=== PATIENT | female | born 1950 | race Caucasian/White ===

== ENCOUNTER 2020-11-06 18:14 | Emergency (ER) | payer MEDICARE, SELFPAY ==
[2020-11-06 19:12] VITALS: BP 136/77; PULSE 83; RESP 19; TEMP 36.8; O2SAT 99; BMI 30.7
--- NOTE | 2020-11-06 19:16 | HMH.EDUTC ---
[facility] [place] Clinical Impression: Laceration Disposition: Home, Self-Care Condition on Discharge: Good Instructions: How to Care for a Laceration After Repair, DI for Laceration Repair, DI for Laceration Repair -- Simple Additional Instructions: Suture instructions: You have required stitches today. Please read the following instructions so you know how to care for them: 1. Keep wound area dry for the first 24 hours. 2 May clean gently with mild soap and water, after 48 hours to prevent crusting over suture knots. 3. You may shower if your provider gives permission but do not take a bath until the skin is healed.. 4. Never leave a wet dressing or Band-Aid on your stitches as this allows bacteria to reach the area and may cause infection. Band-aids can cause the wound to sweat and not recommended to wear for long periods of time Watch for signs of infection: Increasing redness, tenderness or warmth around the suture site Unusual swelling around the site Appearance of pus around each suture or any red streaks Fever If you develop any of the above signs or symptoms of infection, Follow up with Family Physician immediately 5. Suture removal in _7-10___days 6. Return to [facility] or follow up with family doctor for removal. This can be done by any medical provider during regular hours on Wednesday through Wednesday, by appointment. Prescriptions: Amoxicillin/Potassium Clav [Augmentin 500mg tab] 1 tab PO TID 5 Days #15 tab Transmission Status: Sent to [id number] Referrals: Fabio Cee [Primary Care Provider] - As needed Time of Disposition: 20:26 Medical Decision Making - Ricci Inquiry Pt receiving controlled substance: No Ricci was queried for this patient: No Vital Signs: 11/06/20 19:12 Temperature 98.2 F Temperature Source Oral Pulse Rate [Left] 83 Respiratory Rate 19 Blood Pressure [Right Arm] 136/77 Blood Pressure Mean [Right Arm] 96 02 Sat by Pulse Oximetry 99 Orders (Tests/Meds): ED MEDICATIONS Discontinued Medications Generic Name Dose Route Start Last Admin Trade Name Freq PRN Reason Stop Dose Admin Tetanus/Reduced Diphtheria/Acell Pertussis 0.5 ml 11/06/20 19:08 Tet/Diphth/Pert-Adult 0.5ml Syringe IM 11/06/20 19:09 .ONCE ONE Medical Decision Narrative: Patient states that she has taken augmentin in the past without reaction or complications [facility] [place] - General Stated complaint: AO 11/06 lac to L leg Time Seen by Provider: 11/06/20 19:20 Mode of Arrival: Ambulatory Source of Information: Patient Limitations: No Limitations Description of Symptoms (Recalled from Triage Doc. by RN): pt was pushing a wagon in the garage that she had used on the mower. the tongue caught her on her L ramos leaving her with a lac. this occurred around 1500. HEENT Symptoms (Recalled from RN notes): No Resp Symptoms (Recalled from RN notes): No Skin Symptoms (Recalled from RN notes): Yes (lac to L ramos) MS Symptoms (Recalled from RN notes): No Functional Status (Recalled from RN notes): na - History of Present Illness Provider Complaint: Patient state that she was moving a small wagon like trailor that she uses on the mower and the tongue on the wagon hit her in her left lower leg causing laceration States that she is unsure when her last tetanus shot was so she came in to get it checked and get a Tdap - Related Data Home Medications Medication Instructions Recorded Confirmed Ferrous Sulfate 325 mg PO DAILY 03/20/18 03/20/18 Gabapentin [Gabapentin 300mg Cap] 300 mg PO DAILY 03/20/18 03/20/18 Lisinopril/Hydrochlorothiazide 20 mg PO DAILY 03/20/18 03/20/18 [Lisinopril-Hctz 20-12.5 mg Tab] Meloxicam 15 mg PO DAILY 03/20/18 03/20/18 Omeprazole [Omeprazole 40mg 40 mg PO DAILY 03/20/18 03/20/18 Capsule] Tizanidine HCl [Zanaflex 4mg 4 mg PO DAILY 03/20/18 03/20/18 tablet] Previous Rx's Medication Instructions Recorded Amoxicillin/Potassium Clav 1 tab PO TI
[2020-11-06 20:37] VITALS: BP 0/0; PULSE 83; RESP 18; TEMP 36.9
== END 2020-11-06 20:37 | disposition home or self-care (01) ==
PROVIDERS: Emergency Provider Nurse Practitioner; PCP Family Medicine
DX: S81.812A Laceration without foreign body, left lower leg, initial encounter (principal); W22.09XA Striking against other stationary object, initial encounter; Y92.017 Garden or yard in single-family (private) house as the place of occurrence of the external cause; Z23 Encounter for immunization; I10 Essential (primary) hypertension; Z79.899 Other long term (current) drug therapy
CPT/HCPCS: 12002; G0463; 90715; 99202

== ENCOUNTER 2020-11-15 09:04 | Emergency (ER) | payer MEDICARE, SELFPAY ==
[2020-11-15 09:05] VITALS: BP 110/56; PULSE 64; RESP 18; TEMP 36.6; O2SAT 98; BMI 30.7
[2020-11-15 09:25] VITALS: BP 110/56; PULSE 64; RESP 18; TEMP 36.6; O2SAT 98
== END 2020-11-15 09:28 | disposition home or self-care (01) ==
LOC: UTC 09:11
PROVIDERS: Emergency Provider Nurse Practitioner; PCP Family Medicine
DX: S81.812D Laceration without foreign body, left lower leg, subsequent encounter (principal)

== ENCOUNTER 2020-11-17 09:02 | Emergency (ER) | payer MEDICARE, SELFPAY ==
[2020-11-17 09:15] VITALS: BP 136/81; PULSE 87; RESP 16; TEMP 36.8; O2SAT 100; BMI 31.1
[2020-11-17 09:21] VITALS: BP 136/81; PULSE 87; RESP 16; TEMP 36.8; O2SAT 100
== END 2020-11-17 09:30 | disposition home or self-care (01) ==
PROVIDERS: Emergency Provider Nurse Practitioner Family; PCP Family Medicine
DX: S81.812D Laceration without foreign body, left lower leg, subsequent encounter (principal)